=== PATIENT | female | born 1985 | race Two or more races ===

== ENCOUNTER 2017-03-23 12:13 | Emergency (ER) | payer OTHER ==
[~2017-03-23] VITALS: Ht 167.6 cm; Wt 68.0 kg
--- NOTE | 2017-03-23 12:19 | NUR ---
Pt called to triage, pt not in waiting room
[2017-03-23 12:48] VITALS: BP 145/77
[2017-03-23 12:49] LABS: APPEARANCE,URINE Slightly Cloudy (CLEAR); BILIRUBIN,URINE Negative (NEGATIVE); BLOOD, URINE Large Ery/uL (NEGATIVE); COLOR,URINE Yellow (YELLOW); KETONES,URINE Negative (NEGATIVE); LEUKOCYTE ESTERASE ,URINE Trace (NEGATIVE); NITRITE, URINE Negative (NEGATIVE); PH,URINE 6.5 (5.0-8.0); PROTEIN,URINE Negative (NEGATIVE); UGLUCOSE Negative (NEGATIVE); UROBILINOGEN,URINE 0.2 EU/dL (0.2)
[2017-03-23 12:57] LABS: BASOPHILS # (AUTO) 0.1 /CMM (0.0-0.2); EOSINOPHILS # (AUTO) 0.2 /CMM (0.0-0.7); EOSINOPHILS % (AUTO) 3.1 % (0.0-6.0); HEMATOCRIT 38 % (33-45); HEMOGLOBIN 12.7 g/dL (11.5-14.8); LYMPHOCYTES # (AUTO) 2.5 /CMM (0.8-4.8); MEAN CORPUSCULAR HEMOGLOBIN 30 PG (26.0-33.0); MEAN CORPUSCULAR HGB CONC 34 g/dl (31.0-36.0); MEAN CORPUSCULAR VOLUME 89 fL (82-100); MONOCYTES # (AUTO) 0.5 /CMM (0.1-1.30); MONOCYTES % (AUTO) 6.4 % (2.0-12.0); NEUTROPHILS # (AUTO) 4.2 /CMM (1.8-8.9); NEUTROPHILS % (AUTO) 56.5 % (43.0-81.0); PLATELET COUNT (AUTO) 406 /CMM (150-450); RDW COEFFICIENT OF VARIATION 12.8 (11.5-15.0); RED BLOOD CELL COUNT(AUTO) 4.26 MIL/uL (4.0-5.2); WHITE BLOOD COUNT (AUTO) 7.6 K/uL (4.3-11.0)
[2017-03-23 13:11] LABS: CALCIUM, SERUM 8.7 mg/dL (8.5-10.1); CARBON DIOXIDE 27 mmol/L (21-32); CHLORIDE 105 mmol/L (98-107); CREATININE 0.5 mg/dL (0.6-1.3); GLUCOSE 101 mg/dL (74-106); POTASSIUM 4.2 mmol/L (3.5-5.1); SODIUM SERUM 139 mmol/L (136-145); UREA NITROGEN, BLOOD 14 mg/dL (7-18)
[2017-03-23 13:11] LABS: BACTERIA,URINE Moderate /HPF (None Seen); SQUAMOUS EPITHELIAL CELL,UR Many /HPF (None Seen); WBC,URINE 0-3 /HPF (0-3)
[2017-03-23 13:25] LABS: ALANINE AMINOTRANSFERASE 23 U/L (12-78); ALBUMIN 3.4 g/dL (3.4-5.0); ALKALINE PHOSPHATASE 51 U/L (46-116); ASPARTATE AMINOTRANSFERASE 23 U/L (15-37); BILIRUBIN,DIRECT 0.1 mg/dL (0.0-0.2); BILIRUBIN,TOTAL 0.2 mg/dL (0.2-1.0); SALICYLATE 1.2 mg/dL (2.8-20.0); TOTAL PROTEIN, SERUM 6.7 g/dL (6.4-8.2)
[2017-03-23 13:27] LABS: ACETAMINOPHEN 0 ug/ml (10-30)
[2017-03-23 13:34] LABS: ALCOHOL, BLOOD < 3 mg/dL (0-0)
--- NOTE | 2017-03-23 13:44 | NUR ---
CALLED [facility] FOR BLS TRANSPORT BACK TO [facility]
--- NOTE | 2017-03-23 13:57 | NUR ---
PT IS MEDICALLY CLEARED. WILL BE SENDING BACK TO [facility] FOR [facility]OLUNT[facility] PSYCH ADMISSION.
--- NOTE | 2017-03-23 14:09 | NUR ---
PT IS MEDICALLY CLEARED. VOLUNTEER STAFF WILL TAKE PT BACK TO [facility]. STABLE CONDITION.
== END 2017-03-23 14:11 ==
LOC: ER 12:18
DX: Z00.8 Encounter for other general examination (principal); F32.9 Major depressive disorder, single episode, unspecified; F41.9 Anxiety disorder, unspecified; R82.99 Other abnormal findings in urine
CPT/HCPCS: 36415; 80048; 80076; 80305; 80329; 81001; 85025; 87086; 99285; A4606; G0480 ×2; Z7610; 81000-TC

== ENCOUNTER 2018-04-29 21:01 | Emergency (ER) | payer OTHER ==
[~2018-04-29] VITALS: Ht 165.1 cm; Wt 76.2 kg
[2018-04-29 21:07] VITALS: BP 143/68
== END 2018-04-29 21:19 | disposition home or self-care (01) ==
LOC: ER 21:01
DX: S90.421A Blister (nonthermal), right great toe, initial encounter (principal); F15.10 Other stimulant abuse, uncomplicated; F41.9 Anxiety disorder, unspecified; F32.9 Major depressive disorder, single episode, unspecified; Z98.82 Breast implant status; X58.XXXA Exposure to other specified factors, initial encounter; Y93.89 Activity, other specified; Y92.89 Other specified places as the place of occurrence of the external cause; Y99.8 Other external cause status
CPT/HCPCS: A4606; Z7502; Z7610

== ENCOUNTER 2019-04-02 18:37 | Emergency (ER) | payer OTHER ==
[~2019-04-02] VITALS: Ht 167.6 cm; Wt 63.5 kg
--- NOTE | 2019-04-02 20:00 | NUR ---
PT BIBSELF FOR MED CLEARANCE; STATES "I NEED HELP"; [id number], PT ON [place], PT TO BED 14, DENIES S/I AND H/I, -SOB, VSS, SITTER AT BEDSIDE FOR SAFETY. PENDING MD BECERRA
[2019-04-02 20:29] LABS: APPEARANCE,URINE Clear (CLEAR); BILIRUBIN,URINE Negative (NEGATIVE); BLOOD, URINE Negative Ery/uL (NEGATIVE); COLOR,URINE Light yellow (YELLOW); KETONES,URINE Negative (NEGATIVE); LEUKOCYTE ESTERASE ,URINE Negative (NEGATIVE); NITRITE, URINE Negative (NEGATIVE); PROTEIN,URINE Negative (NEGATIVE); UGLUCOSE Negative (NEGATIVE); UROBILINOGEN,URINE 0.2 EU/dL (0.2)
[2019-04-02 20:39] LABS: BASOPHILS % (AUTO) 0.3 % (0.0-2.0); EOSINOPHILS % (AUTO) 0.9 % (0.0-6.0); HEMATOCRIT 42 % (33-45); LYMPHOCYTES # (AUTO) 2.3 /CMM (0.8-4.8); MEAN CORPUSCULAR HGB CONC 34 g/dl (31.0-36.0); MEAN CORPUSCULAR VOLUME 91 fL (82-100); MONOCYTES # (AUTO) 0.5 /CMM (0.1-1.30); MONOCYTES % (AUTO) 5.7 % (2.0-12.0); NEUTROPHILS # (AUTO) 6.2 /CMM (1.8-8.9); NEUTROPHILS % (AUTO) 68.1 % (43.0-81.0); PLATELET COUNT (AUTO) 428 /CMM (150-450); RED BLOOD CELL COUNT(AUTO) 4.59 MIL/uL (4.0-5.2); WHITE BLOOD COUNT (AUTO) 9.1 K/uL (4.3-11.0)
[2019-04-02 20:49] LABS: CALCIUM, SERUM 8.7 mg/dL (8.5-10.1); CARBON DIOXIDE 30 mmol/L (21-32); CHLORIDE 102 mmol/L (98-107); CREATININE 0.7 mg/dL (0.6-1.3); GLUCOSE 97 mg/dL (74-106); POTASSIUM 3.9 mmol/L (3.5-5.1); SODIUM SERUM 137 mmol/L (136-145); UREA NITROGEN, BLOOD 14 mg/dL (7-18)
[2019-04-02 21:04] LABS: ALANINE AMINOTRANSFERASE 26 U/L (12-78); ALBUMIN 4.2 g/dL (3.4-5.0); ALKALINE PHOSPHATASE 75 U/L (46-116); ASPARTATE AMINOTRANSFERASE 16 U/L (15-37); BILIRUBIN,DIRECT 0.1 mg/dL (0.0-0.2); BILIRUBIN,TOTAL 0.2 mg/dL (0.2-1.0)
[2019-04-02 21:05] LABS: ACETAMINOPHEN < 2 ug/ml (10-30); ALCOHOL, BLOOD < 3 mg/dL (0-0); SALICYLATE 2.4 mg/dL (2.8-20.0)
[2019-04-02] MEDS ORDERED: LORAZEPAM 1 MG TABLET ONE (21:18)
[2019-04-02] MEDS ORDERED: LORAZEPAM 1 MG TABLET PO ONE (21:30)
--- NOTE | 2019-04-02 23:23 | NUR ---
PT ACCEPTED TO [facility] BY DR YORK. # FOR REPORT [phone]
[2019-04-03] VITALS: BP 139/90
--- NOTE | 2019-04-03 | NUR ---
REPORT GIVEN TO ERIC PHOENIX AT [facility]
--- NOTE | 2019-04-03 00:20 | NUR ---
[facility] TO [facility]SPORT PATIENT, -[facility]. REPORT GIVEN TO EMT FOR [facility]UNO; PT IS IN STABLE CONDITION, VSS, PT AAOX4.
== END 2019-04-03 00:42 ==
LOC: ER 18:43
DX: F29 Unspecified psychosis not due to a substance or known physiological condition (principal); F15.10 Other stimulant abuse, uncomplicated; F41.9 Anxiety disorder, unspecified; F32.9 Major depressive disorder, single episode, unspecified; F90.9 Attention-deficit hyperactivity disorder, unspecified type; F43.10 Post-traumatic stress disorder, unspecified; R45.1 Restlessness and agitation; Z98.890 Other specified postprocedural states
CPT/HCPCS: 36415; 80048; 80076; 80305; 80307; 80329; 81001; 84702; 84703; 85025; 99285; G0480; 81000-TC

== ENCOUNTER 2020-06-02 20:09 | Emergency (ER) | payer OTHER ==
[~2020-06-02] VITALS: Ht 157.5 cm; Wt 81.6 kg
--- NOTE | 2020-06-02 20:58 | NUR ---
SALES ASSOCIATE CASHIER AT BEDSIDE
--- NOTE | 2020-06-02 22:28 | NUR ---
US AT BEDSIDE
--- NOTE | 2020-06-02 23:50 | NUR ---
Patient discharged to home in stable condition. Written and verbal after care instructions given. Patient verbalizes understanding of instruction. Pt stated "sheeeiit" when told she was 5 weeks and 5 days .
[2020-06-02 23:52] VITALS: BP 121/71
== END 2020-06-02 23:52 | disposition home or self-care (01) ==
LOC: ER 20:09
DX: O20.0 Threatened abortion (principal); Z98.82 Breast implant status
CPT/HCPCS: 36415; 76805-TC; 84702-TC; 84703-TC

== ENCOUNTER 2020-06-30 19:19 | Emergency (ER) | payer OTHER ==
[~2020-06-30] VITALS: Ht 162.6 cm; Wt 81.6 kg
--- NOTE | 2020-06-30 19:32 | NUR ---
FLEET MANAGER/DISPATCH DEGRASSE AT BEDSIDE FOR EVAL
--- NOTE | 2020-06-30 19:34 | NUR ---
PATIENT CAME TO ER BED 10 C/O LOWER ABDOMINAL PAIN SINCE 3xDAYS. PATIENT STATES THAT SHE MAY BE . PATIENT STATES THAT IT HAS BEEN 3 MONTHS SINCE SHE HAD A MENSTRUAL PERIOD. PATIENT IS AAOX4. NO SOB .BREATHING EVENLY AND UNLABORED ON ROOM AIR. CONNECTED TO THE MONITOR.
--- NOTE | 2020-06-30 19:45 | NUR ---
URINE COLLECTED AND SENT TO LAB
--- NOTE | 2020-06-30 19:48 | NUR ---
IT COMMUNICATIONS SPECIALIST AT BEDSIDE.
--- NOTE | 2020-06-30 19:52 | NUR ---
blood collected and sent to the lab.
[2020-06-30] MEDS ORDERED: IV NS 0.9% 1,000 ML BAG IV ONE (20:00)
[2020-06-30 20:06] LABS: BILIRUBIN,URINE Negative (NEGATIVE); BLOOD, URINE Negative Ery/uL (NEGATIVE); COLOR,URINE YELLOW (YELLOW); LEUKOCYTE ESTERASE ,URINE Negative (NEGATIVE); NITRITE, URINE Negative (NEGATIVE); PH,URINE 5.5 (5.0-8.0); PROTEIN,URINE Negative (NEGATIVE); UGLUCOSE Negative (NEGATIVE); UROBILINOGEN,URINE 0.2 EU/dL (0.2)
[2020-06-30 20:07] LABS: HEMOGLOBIN 13.3 g/dL (11.5-14.8); MONOCYTES # (AUTO) 0.5 /CMM (0.1-1.30)
[2020-06-30 20:11] LABS: BASOPHILS % (AUTO) 0.6 % (0.0-2.0); EOSINOPHILS % (AUTO) 8.7 % (0.0-6.0); HEMATOCRIT 40 % (33-45); LYMPHOCYTES # (AUTO) 2.8 /CMM (0.8-4.8); LYMPHOCYTES % (AUTO) 37.7 % (20.0-44.0); MEAN CORPUSCULAR HGB CONC 33 g/dl (31.0-36.0); MEAN CORPUSCULAR VOLUME 90 fL (82-100); MONOCYTES % (AUTO) 7.2 % (2.0-12.0); NEUTROPHILS # (AUTO) 3.5 /CMM (1.8-8.9); NEUTROPHILS % (AUTO) 45.8 % (43.0-81.0); PLATELET COUNT (AUTO) 353 /CMM (150-450); RED BLOOD CELL COUNT(AUTO) 4.47 MIL/uL (4.0-5.2); WHITE BLOOD COUNT (AUTO) 7.5 K/uL (4.3-11.0)
[2020-06-30 20:17] LABS: CALCIUM, SERUM 8.8 mg/dL (8.5-10.1); CREATININE 0.5 mg/dL (0.6-1.3); POTASSIUM 3.8 mmol/L (3.5-5.1)
[2020-06-30 20:24] LABS: ALBUMIN 3.3 g/dL (3.4-5.0); BILIRUBIN,DIRECT 0.1 mg/dL (0.0-0.2); BILIRUBIN,TOTAL 0.1 mg/dL (0.2-1.0); TOTAL PROTEIN, SERUM 7.3 g/dL (6.4-8.2)
--- NOTE | 2020-06-30 21:07 | NUR ---
IV removed. Catheter intact and site benign. Pressure and 4x4 applied to site. No bleeding noted.
--- NOTE | 2020-06-30 21:12 | NUR ---
Patient discharged to home in stable condition. Written and verbal after care instructions given. Patient verbalizes understanding of instruction.
[2020-06-30 21:13] VITALS: BP 115/72
== END 2020-06-30 21:13 | disposition home or self-care (01) ==
LOC: ER 19:25
DX: R10.2 Pelvic and perineal pain (principal); F41.9 Anxiety disorder, unspecified; F32.9 Major depressive disorder, single episode, unspecified; F43.10 Post-traumatic stress disorder, unspecified; F90.9 Attention-deficit hyperactivity disorder, unspecified type; Z98.890 Other specified postprocedural states
CPT/HCPCS: 36415; 76856; 80048; 80076; 81001; 84702 ×2; 84703; 85025; 96360; 99284; J7030